=== PATIENT | female | born 1950 | race Caucasian/White ===

== ENCOUNTER 2016-09-04 08:27 | Outpatient (CLI) | payer MEDICARE, BC | END 2016-09-04 23:59 | disposition home or self-care (01) | DX: I10 Essential (primary) hypertension (principal); E78.2 Mixed hyperlipidemia; E03.9 Hypothyroidism, unspecified; Z79.899 Other long term (current) drug therapy ==

== ENCOUNTER 2016-09-15 08:40 | Outpatient (CLI) | payer MEDICARE, BC | END 2016-09-15 08:41 | disposition home or self-care (01) | DX: M85.89 Other specified disorders of bone density and structure, multiple sites (principal); Z78.0 Asymptomatic menopausal state ==

== ENCOUNTER 2016-09-25 09:22 | Outpatient (CLI) | payer MEDICARE, BC ==
--- NOTE | 2016-10-10 13:45 | Mammography Report ---
DIGITAL SCREENING MAMMOGRAM: 09/25/2016 CLINICAL INDICATION: A 66-year-old with history of late childbearing, history of benign left excisio nal biopsy for screening. The patient reports having had previous outside mammograms in [place], [place], but films are not y et available for direct comparison. If they become available, an addendum will be issued. TECHNIQUE: Routine CC and MLO projections were obtained of the breasts. FINDINGS: The breasts demonstrate heterogeneously dense fibroglandular parenchyma bilaterally. In t he left lower inner central breast, there is a possible obscured nodule. Further evaluation with spo t compression views and possible ultrasound is recommended. Biopsy marker is noted in the left upper central posterior breast. Coarse and punctate, typically benign calcifications are present. IMPRESSION: INCOMPLETE EXAMINATION. RECOMMENDATION: Additional evaluation of the left breast as above. BI-RADS category 0, incomplete. STANDARD QUALIFYING STATEMENTS 1. This examination was reviewed with the aid of Computer-Aided Detection (CAD). 2. A negative or benign imaging report should not delay biopsy if clinically suspicious findings are present. Consider surgical consultation if warranted. More than 5% of cancers are not identified by i maging. 3. Dense breasts may obscure an underlying neoplasm. JOB #: [id number] EXT JOB #:[id number]
== END 2016-09-25 09:23 | disposition home or self-care (01) ==
LOC: DI 09:22
PROVIDERS: ATTEND Nurse Practitioner Primary Care
DX: Z12.31 Encounter for screening mammogram for malignant neoplasm of breast (principal); R92.8 Other abnormal and inconclusive findings on diagnostic imaging of breast
CPT/HCPCS: 77067

== ENCOUNTER 2016-10-17 10:54 | Outpatient (CLI) | payer MEDICARE, BC ==
--- NOTE | 2016-10-17 14:12 | Mammography Report ---
DIGITAL DIAGNOSTIC LEFT MAMMOGRAM: 10/17/2016 CLINICAL INDICATION: Possible obscured nodule left lower inner quadrant. TECHNIQUE: Left true lateral and spot compression views. COMPARISON: 09/25/2016. Additionally, films from [place], [place] dated 12/19/2014, 12/14/2013, 12/11, 12/22/2011, 07/11/2011, 01/09/2011, 01/06/2011, 12/13/2010, 12/04/2009, 11/24/2008 are now sasha ilable for direct comparison. FINDINGS: The left breast again demonstrates heterogeneously dense fibroglandular parenchyma. The de nsity in the left lower inner quadrant partially dissipates on additional compression, and appears si milar to multiple previous examinations dating back to 2008. No mammographically suspicious changes a re appreciated. Postbiopsy changes are stable. IMPRESSION: BENIGN FINDINGS. RECOMMENDATION: ROUTINE ANNUAL SCREENING UNLESS OTHERWISE CLINICALLY INDICATED. BIRADS CATEGORY 2-BENIGN FINDINGS. STANDARD QUALIFYING STATEMENTS 1. This examination was reviewed with the aid of Computer-Aided Detection (CAD). 2. A negative or benign imaging report should not delay biopsy if clinically suspicious findings are present. Consider surgical consultation if warranted. More than 5% of cancers are not identified by i maging. 3. Dense breasts may obscure an underlying neoplasm. JOB #: [id number] EXT JOB #:[id number]
== END 2016-10-17 10:55 | disposition home or self-care (01) ==
LOC: DI 10:54
PROVIDERS: ATTEND Nurse Practitioner Primary Care
DX: N63 Unspecified lump in breast (principal)

== ENCOUNTER 2017-09-18 09:00 | Outpatient (CLI) | payer MEDICARE, BC ==
[2017-09-18 10:27] LABS: BASOPHILS % (AUTO) 0.6 %; EOSINOPHILS # (AUTO) 0.2 10^3/uL (0.0-0.7); EOSINOPHILS % (AUTO) 3.7 %; HGB - HEMOGLOBIN 13.3 g/dL (12.0-16.0); LYMPHOCYTES # (AUTO) 2.1 10^3/uL (1.5-3.5); LYMPHOCYTES % (AUTO) 39.4 %; MEAN CORPUSCULAR HEMOGLOBIN 31.6 pg (27.0-31.0); MEAN CORPUSCULAR HGB CONC 33.1 g/dL (32.0-36.0); MEAN CORPUSCULAR VOLUME 95.5 fL (81.0-99.0); MEAN PLATELET VOLUME 9.2 fL (7.9-10.8); MONOCYTES # (AUTO) 0.3 10^3/uL (0.0-1.0); MONOCYTES % (AUTO) 6.2 %; NEUTROPHILS # (AUTO) 2.7 10^3/uL (1.5-6.6); NEUTROPHILS % (AUTO) 50.1 %; PLT - PLATELET COUNT 189 10^3/uL (130-450); RED BLOOD COUNT 4.22 10^6/uL (4.20-5.40); RED CELL DISTRIBUTION WIDTH 13.4 % (12.0-15.0); WHITE BLOOD COUNT 5.4 x10^3/uL (4.8-10.8)
[2017-09-18 11:09] LABS: ALBUMIN 4.3 g/dL (3.2-5.5); ALBUMIN/GLOBULIN RATIO 1.7 (1.0-2.2); ALKALINE PHOSPHATASE 60 IU/L (42-121); ALT ALANINE AMINOTRANSFERASE 23 IU/L (10-60); AST ASPARTATE AMINOTRANSFERASE 23 IU/L (10-42); BILIRUBIN,TOTAL 0.8 mg/dL (0.2-1.0); BUN - BLOOD UREA NITROGEN 10 mg/dL (6-20); CALCIUM 9.2 mg/dL (8.5-10.3); CARBON DIOXIDE - CO2 28 mmol/L (21-32); CHLORIDE 104 mmol/L (101-111); CHOL/HDL RATIO 2.5 (<4.4); CHOLESTEROL 147 mg/dL; CREATININE 0.7 mg/dL (0.4-1.0); GFR - MDRD 83 (>89); GLUCOSE 94 mg/dL (70-100); HDL CHOLESTEROL 58 mg/dL; LDL CHOLESTEROL,CALCULATED 77 mg/dL; LDL/HDL RATIO 1.3 (<4.4); SODIUM 138 mmol/L (135-145); TOTAL PROTEIN 6.9 g/dL (6.7-8.2); VLDL CHOLESTEROL 12 mg/dL
== END 2017-09-18 09:01 | disposition home or self-care (01) ==
LOC: LAB.R 09:00
PROVIDERS: ATTEND Nurse Practitioner Primary Care
DX: E03.9 Hypothyroidism, unspecified (principal); E78.2 Mixed hyperlipidemia; Z79.899 Other long term (current) drug therapy
CPT/HCPCS: 80053; 80061; 83721; 84443; 85025

== ENCOUNTER 2017-11-27 08:57 | Outpatient (CLI) | payer MEDICARE, BC ==
--- NOTE | 2017-11-27 11:12 | Mammography Report ---
Procedure Date: 11/27/2017 Accession Number: [id number] / [id number] Procedure: ROXY - Diagnostic Dig Bilat CPT Code: FULL RESULT: EXAM: Diagnostic Dig Bilat DATE: 11/27/2017 9:40 AM CLINICAL HISTORY: 67-year-old female with a history of benign breast biopsy on the left and a family history of breast cancer in an aunt in her 60s surgical mole removal from the left breast approximately 2 weeks ago with a palpable finding in the same area. TECHNIQUE: Bilateral CC and MLO, left ML and right exaggerated CC views are obtained. COMPARISON: 10/17/2016, 09/25/2016, 12/19/2014, 12/14/2013. FINDINGS: The breasts demonstrate heterogeneously dense fibroglandular parenchyma bilaterally. The right breast demonstrates coarse typically benign calcifications. The left breast contains coarse typically benign calcifications and focal skin thickening is seen in the region of the recent surgical mole removal with no associated underlying soft tissue calcifications, distortions or masses, a typically benign appearance. A biopsy marker seen in the left breast. IMPRESSION: Benign findings RECOMMENDATION: Recommend routine annual Screening mammography unless otherwise clinically indicated. BIRADS CATEGORY 2: Benign findings STANDARD QUALIFYING STATEMENTS: 1. This examination was reviewed with the aid of Computer-Aided Detection (CAD). 2. A negative or benign imaging report should not delay biopsy if clinically suspicious findings are present. Consider surgical consultation if warrented. More than 5% of cancers are not identified by imaging. 3. Dense breasts may obscure an underlying neoplasm.
== END 2017-11-27 08:58 | disposition home or self-care (01) ==
LOC: DI 08:57
PROVIDERS: ATTEND Nurse Practitioner Primary Care
DX: R92.8 Other abnormal and inconclusive findings on diagnostic imaging of breast (principal); Z80.3 Family history of malignant neoplasm of breast
CPT/HCPCS: 77066

== ENCOUNTER 2018-02-01 11:04 | Outpatient (CLI) | payer MEDICARE, BC ==
--- NOTE | 2018-02-01 13:47 | XRAY Report ---
Reason: CERVICALGIA Procedure Date: 02/01/2018 Accession Number: [id number] / [id number] Procedure: XR - Cervical Spine Complete CPT Code: FULL RESULT: EXAM: CERVICAL SPINE RADIOGRAPHY EXAM DATE: 02/01/2018 11:33 AM. CLINICAL HISTORY: Cervicalgia. COMPARISONS: None. TECHNIQUE: 5 views. FINDINGS: Alignment: Normal. No spondylolisthesis or scoliosis. Bones: The cervical vertebral bodies and posterior elements are well-visualized from the skull base through C7-T1. No fractures or bone lesions. Disks: There is multilevel loss of disk space height, which is most pronounced at C4 through C7. Facets: Degenerative facet disease is most pronounced at C6 and C7. Neural Foramina: The neural foramina have bony patency bilaterally but are most narrowed at the C4-C5 and C5-C6 levels bilaterally. Soft Tissues: Normal. No prevertebral soft tissue swelling. The visualized lung apices are clear. IMPRESSION: Multilevel degenerative changes as described. RADIA
== END 2018-02-01 11:05 | disposition home or self-care (01) ==
LOC: DI 11:04
PROVIDERS: ATTEND Nurse Practitioner Primary Care
DX: M50.30 Other cervical disc degeneration, unspecified cervical region (principal); M47.9 Spondylosis, unspecified
CPT/HCPCS: 72050

== ENCOUNTER 2019-11-09 13:28 | Outpatient (CLI) | payer MEDICARE ==
--- NOTE | 2019-11-10 11:11 | Mammography Report ---
BILATERAL DIGITAL SCREENING MAMMOGRAM 3D/2D: 11/09/2019 CLINICAL: Routine screening. Comparison is made to exams dated: 11/27/2017 mammogram, 10/17/2016 mammogram, 09/15/2016 mammogram, 12/19 mammogram, 01/09/2011 ultrasound, and 01/06/2011 ultrasound - [facility]. The t issue of both breasts is heterogeneously dense. This may lower the sensitivity of mammography. There is a biopsy clip in the left breast. No significant masses, calcifications, or other findings are seen in either breast. There has been no significant interval change. IMPRESSION: NEGATIVE There is no mammographic evidence of malignancy. A 1 year screening mammogram is recommended. This exam was interpreted at Station ID: [id number]. NOTE: For mammograms, a report in lay terms will be sent to the patient. Approximately 15% of breast malignancies will not be visualized mammographically. In the management of a palpable breast mass, a negative mammogram must not discourage biopsy of a clinically suspicious lesion. Electronically Signed By: Nel de los santos/dionisio:11/10/2019 09:50:39 ACR BI-RADS Category 1: Negative 3341F PARENCHYMAL PATTERN: (D) - The breast(s) demonstrate(s) heterogeneously dense fibroglandular mark gregory. BI-RADS CATEGORY: (1) - 1 RECOMMENDATION: (ANNUAL) - Recommend routine annual screening mammography. [id number] 1 year screening LATERALITY: (B)
== END 2019-11-09 13:29 | disposition home or self-care (01) ==
LOC: DI 13:28
PROVIDERS: ATTEND Family Medicine
DX: Z12.31 Encounter for screening mammogram for malignant neoplasm of breast (principal)
CPT/HCPCS: 77063; 77067

== ENCOUNTER 2019-11-28 10:20 | Outpatient (CLI) | payer MEDICARE ==
--- NOTE | 2019-11-28 12:52 | XRAY Report ---
PROCEDURE: Foot 3 View BILAT INDICATIONS: PAINFUL 1ST P JOINT BL TECHNIQUE: 3 views of the left foot and 3 views of the right foot were acquired. COMPARISON: None. FINDINGS: Right right: No fractures or dislocations. No suspicious bony lesions. Severe first metatarsophala ngeal joint degeneration. Mild bunion. A gated ossicle at the base of the fifth metatarsus is probabl y sequelae of old injury. Calcaneal spurring. Left foot: Anatomy and fusion at the first metatarsophalangeal joint. No fractures or dislocations. No suspicious bony lesions. Severe first metatarsophalangeal joint degeneration. Calcaneal spurring . IMPRESSION: 1. Bunionectomy and arthrodesis at the left first metatarsophalangeal joint. 2. Mild bunion and severe right first metatarsophalangeal joint degeneration. 3. Bilateral calcaneal spurring. Reviewed by: Wayne Howe MD on 11/28/2019 12:50 PM PDT Approved by: Wayne Howe MD on 11/28/2019 12:50 PM PDT Station ID: [id number]
== END 2019-11-28 10:21 | disposition home or self-care (01) ==
LOC: DI 10:20
PROVIDERS: ATTEND Podiatrist
DX: M21.611 Bunion of right foot (principal); M19.071 Primary osteoarthritis, right ankle and foot; M77.32 Calcaneal spur, left foot; M77.31 Calcaneal spur, right foot

== ENCOUNTER 2020-10-15 09:48 | Outpatient (CLI) | payer MEDICARE, OTHER ==
--- NOTE | 2020-10-17 08:16 | DEXA Report ---
PROCEDURE: Dexa Spine and/or Hip INDICATIONS: POST MENOPAUSAL TECHNIQUE: Dual energy x-ray absorptiometry (DXA) was performed on a [employer] System. Regions measur ed are the AP Spine, femoral neck, and if needed forearm. COMPARISON: Prior similar study 09/15/2016 reviewed. FINDINGS: Lumbar Spine: Bone Mineral Density 1.019 g/cm/cm,T score -1.3, osteopenia, and this represents a statistically i nsignificant reduction of bone mineral density in the lumbosacral spine of 1.3% from 2017. Left Hip: Bone Mineral Density 0.867 g/cm/cm,T score -1.1, osteopenia, and this represents a statistically sig nificant improvement in bone mineral density from the comparison study in September 2016. Left Femoral Neck: Bone Mineral Density 0.807 g/cm/cm, T score -1.7, osteopenia (T score greater or equal to -1.0: NORMAL) (T score from -1.1 to -2.4: OSTEOPENIA) (T score less than or equal to -2.5 to: OSTEOPOROSIS) Impression: No significant change at the lumbosacral spine where osteopenia is again seen. At the lef t hip overall there has been a 4.6% significant improvement in bone mineral density with reference to the prior study from 2017. Patients with diagnosis of osteoporosis or osteopenia should have regular bone mineral density assess ment. For those eligible for Medicare, routine testing is allowed once every 2 years. Testing frequ ency can be increased for patients who have rapidly progressing disease or for those who are receivin g medical therapy to restore bone mass. Reviewed by: Josué Finn MD on 10/17/2020 8:14 AM PDT Approved by: Josué Finn MD on 10/17/2020 8:14 AM PDT Station ID: [id number]
== END 2020-10-15 09:49 | disposition home or self-care (01) ==
LOC: DI 09:48
PROVIDERS: ATTEND Physician Assistant
DX: M85.89 Other specified disorders of bone density and structure, multiple sites (principal)

== ENCOUNTER 2020-11-15 07:18 | Outpatient (CLI) | payer MEDICARE ==
[2020-11-15 08:15] LABS: ALBUMIN 4.4 g/dL (3.2-5.5); ALBUMIN/GLOBULIN RATIO 1.6 (1.0-2.2); ALKALINE PHOSPHATASE 76 IU/L (42-121); ALT ALANINE AMINOTRANSFERASE 28 IU/L (10-60); AST ASPARTATE AMINOTRANSFERASE 22 IU/L (10-42); BILIRUBIN,TOTAL 0.7 mg/dL (0.2-1.0); BUN - BLOOD UREA NITROGEN 15 mg/dL (6-20); CALCIUM 9.5 mg/dL (8.5-10.3); CARBON DIOXIDE - CO2 29 mmol/L (21-32); CHLORIDE 101 mmol/L (101-111); CHOL/HDL RATIO 2.6 (<4.4); CHOLESTEROL 169 mg/dL; CREATININE 0.8 mg/dL (0.4-1.0); GFR - MDRD 71 (>89); GLUCOSE 106 mg/dL (70-100); HDL CHOLESTEROL 65 mg/dL; LDL CHOLESTEROL,CALCULATED 86 mg/dL; LDL/HDL RATIO 1.3 (<4.4); POTASSIUM 3.7 mmol/L (3.5-5.0); SODIUM 138 mmol/L (135-145); TOTAL PROTEIN 7.2 g/dL (6.7-8.2); TRIGLYCERIDES 90 mg/dL; VLDL CHOLESTEROL 18 mg/dL
== END 2020-11-15 07:19 | disposition home or self-care (01) ==
LOC: LAB 07:18
PROVIDERS: ATTEND Family Medicine
DX: E03.9 Hypothyroidism, unspecified (principal); E78.2 Mixed hyperlipidemia; I10 Essential (primary) hypertension
CPT/HCPCS: 36415; 80053; 80061; 83721; 84443

== ENCOUNTER 2021-10-01 09:28 | Outpatient (CLI) | payer MEDICARE ==
[2021-10-01 16:47] LABS: BASOPHILS # (AUTO) 0.1 10^3/uL (0.0-0.1); BASOPHILS % (AUTO) 1.1 %; EOSINOPHILS # (AUTO) 0.2 10^3/uL (0.0-0.7); EOSINOPHILS % (AUTO) 3.2 %; HCT - HEMATOCRIT 41.7 % (37.0-47.0); HGB - HEMOGLOBIN 13.4 g/dL (12.0-16.0); LYMPHOCYTES # (AUTO) 2.2 10^3/uL (1.5-3.5); MEAN CORPUSCULAR HEMOGLOBIN 31.8 pg (27.0-31.0); MEAN CORPUSCULAR HGB CONC 32.1 g/dL (32.0-36.0); MEAN PLATELET VOLUME 11.4 fL (7.9-10.8); MONOCYTES # (AUTO) 0.4 10^3/uL (0.0-1.0); MONOCYTES % (AUTO) 7.4 %; NEUTROPHILS # (AUTO) 2.5 10^3/uL (1.5-6.6); NEUTROPHILS % (AUTO) 47.1 %; PLT - PLATELET COUNT 212 10^3/uL (130-450); RED BLOOD COUNT 4.21 10^6/uL (4.20-5.40); RED CELL DISTRIBUTION WIDTH 12.5 % (12.0-15.0); WHITE BLOOD COUNT 5.3 x10^3/uL (4.8-10.8)
[2021-10-01 17:03] LABS: ALBUMIN 4.4 g/dL (3.2-5.5); ALBUMIN/GLOBULIN RATIO 1.6 (1.0-2.2); ALKALINE PHOSPHATASE 64 IU/L (42-121); ALT ALANINE AMINOTRANSFERASE 25 IU/L (10-60); AST ASPARTATE AMINOTRANSFERASE 20 IU/L (10-42); BILIRUBIN,TOTAL 0.6 mg/dL (0.2-1.0); BUN - BLOOD UREA NITROGEN 18 mg/dL (6-20); CALCIUM 9.4 mg/dL (8.5-10.3); CARBON DIOXIDE - CO2 28 mmol/L (21-32); CHLORIDE 103 mmol/L (101-111); CHOL/HDL RATIO 2.4 (<4.4); CHOLESTEROL 169 mg/dL; CK- CREATINE KINASE 89 IU/L (22-269); CREATININE 0.8 mg/dL (0.4-1.0); GFR - MDRD 71 (>89); GLUCOSE 99 mg/dL (70-100); HDL CHOLESTEROL 69 mg/dL; LDL CHOLESTEROL,CALCULATED 84 mg/dL; LDL/HDL RATIO 1.2 (<4.4); POTASSIUM 3.5 mmol/L (3.5-5.0); SODIUM 140 mmol/L (135-145); TOTAL PROTEIN 7.1 g/dL (6.7-8.2); TRIGLYCERIDES 80 mg/dL; VLDL CHOLESTEROL 16 mg/dL
[2021-10-01 17:13] LABS: THYROID STIMULATING HORMONE 2.57 uIU/mL (0.34-5.60)
== END 2021-10-01 23:59 | disposition home or self-care (01) ==
LOC: LAB.R 09:28
PROVIDERS: ATTEND Internal Medicine
DX: Z00.00 Encounter for general adult medical examination without abnormal findings (principal); E78.5 Hyperlipidemia, unspecified; I10 Essential (primary) hypertension; E03.9 Hypothyroidism, unspecified; M85.80 Other specified disorders of bone density and structure, unspecified site; Z79.899 Other long term (current) drug therapy
CPT/HCPCS: 80053; 80061; 82550; 82607; 83721; 84443; 85025

== ENCOUNTER 2021-11-15 09:32 | Outpatient (CLI) | payer MEDICARE ==
--- NOTE | 2021-11-18 08:07 | Mammography Report ---
BILATERAL DIGITAL SCREENING MAMMOGRAM 3D/2D: 11/15/2021 CLINICAL: Routine screening. Comparison is made to exams dated: 11/09/2019 mammogram, 11/27/2017 mammogram, 09/15/2016 mammogram, and 12/19/2014 mammogram - [facility]. The tissue of both breasts is heterogeneously de nse. This may lower the sensitivity of mammography. There is a benign calcification in the right breast. There also is a biopsy clip in the left breast. No significant masses, calcifications, or other findings are seen in either breast. There has been no significant interval change. IMPRESSION: BENIGN There is no mammographic evidence of malignancy. A 1 year screening mammogram is recommended. Based on the Tyrer Cuzick model (a risk assessment model) the patients lifetime risk is 12.6% and he r 10 year risk is 8.7%. According to the ACR, ACS, and NCCN guidelines, an annual breast MRI exam jose l ng with mammogram is recommended if the patients lifetime risk is 20% or greater. This exam was interpreted at Station ID: [id number]. NOTE: For mammograms, a report in lay terms will be sent to the patient. Approximately 15% of breast malignancies will not be visualized mammographically. In the management of a palpable breast mass, a negative mammogram must not discourage biopsy of a clinically suspicious lesion. Electronically Signed By: Aidan field/dionisio:11/15/2021 17:40:38 ACR BI-RADS Category 2: Benign Finding(s) 3342F PARENCHYMAL PATTERN: (D) - The breast(s) demonstrate(s) heterogeneously dense fibroglandular mark gregory. BI-RADS CATEGORY: (2) - 2 RECOMMENDATION: (ANNUAL) - Recommend routine annual screening mammography. [id number] 1 year screening LATERALITY: (B)
== END 2021-11-15 09:33 | disposition home or self-care (01) ==
LOC: DI 09:32
PROVIDERS: ATTEND Internal Medicine
DX: Z12.31 Encounter for screening mammogram for malignant neoplasm of breast (principal)

== ENCOUNTER 2022-11-10 11:13 | Outpatient (CLI) | payer MEDICARE ==
--- NOTE | 2022-11-12 10:13 | Mammography Report ---
BILATERAL DIGITAL SCREENING MAMMOGRAM 3D/2D: 11/10/2022 CLINICAL: Routine screening. Comparison is made to exams dated: 11/15/2021 mammogram, 11/09/2019 mammogram, 11/27/2017 mammogram, 2016 mammogram, 09/15/2016 mammogram, and 12/19/2014 mammogram - [facility]. Both breasts are heterogeneously dense, which may obscure small masses (category c / 51-75% glandular tissue). There is a benign calcification in the right breast. There also is a biopsy clip in the left breast. No significant masses, calcifications, or other findings are seen in either breast. There has been no significant interval change. IMPRESSION: BENIGN There is no mammographic evidence of malignancy. A 1 year screening mammogram is recommended. Based on the Tyrer Cuzick model (a risk assessment model) the patients lifetime risk is 11.1% and he r 10 year risk is 8.4%. According to the ACR, ACS, and NCCN guidelines, an annual breast MRI exam ojse l ng with mammogram is recommended if the patients lifetime risk is 20% or greater. This exam was interpreted at Station ID: [id number]. NOTE: For mammograms, a report in lay terms will be sent to the patient. Approximately 15% of breast malignancies will not be visualized mammographically. In the management of a palpable breast mass, a negative mammogram must not discourage biopsy of a clinically suspicious lesion. Electronically Signed By: Josiah mac/dionisio:11/10/2022 19:07:36 letter sent: No_Letter ACR BI-RADS Category 2: Benign Finding(s) 3342F PARENCHYMAL PATTERN: (D) - The breast(s) demonstrate(s) heterogeneously dense fibroglandular parenchy ma. BI-RADS CATEGORY: (2) - 2 Mammogram [id number] 1 year screening LATERALITY: (B)
== END 2022-11-10 11:14 | disposition home or self-care (01) ==
LOC: DI 11:13
PROVIDERS: ATTEND Internal Medicine
DX: Z12.31 Encounter for screening mammogram for malignant neoplasm of breast (principal)

== ENCOUNTER 2023-11-27 09:12 | Outpatient (CLI) | payer MEDICARE ==
--- NOTE | 2023-11-30 09:39 | Mammography Report ---
BILATERAL DIGITAL SCREENING MAMMOGRAM 3D/2D: 11/27/2023 CLINICAL: Routine screening. Comparison is made to exams dated: 11/10/2022 mammogram, 11/15/2021 mammogram, 11/09/2019 mammogram, 2017 mammogram, 10/17/2016 mammogram, and 09/15/2016 mammogram - [facility]. Both breasts are heterogeneously dense, which may obscure small masses (category c / 51-75% glandular tissue). There is a possible new irregular architectural distortion in the right breast at 12 o'clock posterio r depth. No other significant masses, calcifications, or other findings are seen in either breast. IMPRESSION: INCOMPLETE: NEEDS ADDITIONAL IMAGING EVALUATION The possible new irregular architectural distortion in the right breast is indeterminate. Additional views with possible ultrasound are recommended. Based on the Tyrer Cuzick model (a risk assessment model) the patient's lifetime risk is 10.5% and he r 10 year risk is 8.6%. According to the ACR, ACS, and NCCN guidelines, an annual breast MRI exam jose l ng with mammogram is recommended if the patient's lifetime risk is 20% or greater. This exam was interpreted at Station ID: [id number]. NOTE: For mammograms, a report in lay terms will be sent to the patient. Approximately 15% of breast malignancies will not be visualized mammographically. In the management of a palpable breast mass, a negative mammogram must not discourage biopsy of a clinically suspicious lesion. Electronically Signed By: Josiah Holcomb M.D. aty/:11/27/2023 14:30:31 ACR BI-RADS Category 0: Incomplete 3340F PARENCHYMAL PATTERN: (D) - The breast(s) demonstrate(s) heterogeneously dense fibroglandular parenchy ma. BI-RADS CATEGORY: (0) - 0 Mammo and [place] [id number] Immediate follow-up LATERALITY: (R)
== END 2023-11-27 09:13 | disposition home or self-care (01) ==
LOC: DI 09:12
PROVIDERS: ATTEND Internal Medicine
DX: Z12.31 Encounter for screening mammogram for malignant neoplasm of breast (principal); R92.8 Other abnormal and inconclusive findings on diagnostic imaging of breast; R92.333 Mammographic heterogeneous density, bilateral breasts

== ENCOUNTER 2023-11-27 09:37 | Outpatient (CLI) | payer MEDICARE ==
--- NOTE | 2023-11-27 13:49 | DEXA Report ---
PROCEDURE: Dexa Spine and/or Hip INDICATIONS: OSTEOPENIA TECHNIQUE: Dual energy x-ray absorptiometry (DXA) was performed on a [employer] System. Regions measur ed are the AP Spine, femoral neck, and if needed forearm. COMPARISON: DEXA 10/15/2020 FINDINGS: Lumbar Spine: Bone Mineral Density: 0.954 g/cm/cm,T score: -1.8. There has been no statistically significant rendon e in bone mineral density since the prior study. Left Femoral Neck: Bone Mineral Density: 0.805 g/cm/cm, T score: -1.7. Left Hip: Bone Mineral Density: 0.815 g/cm/cm,T score: -1.5. Since the most recent prior study, there has been a statistically significant decrease in bone mineral density by 6.0 percent. (T score greater or equal to -1.0: NORMAL) (T score from -1.1 to -2.4: OSTEOPENIA) (T score less than or equal to -2.5 to: OSTEOPOROSIS) Impression: By WHO criteria, this patient has low bone density (osteopenia). No statistical interval change in bone mineral density of the lumbar spine. Interval statistical decr ease in bone mineral density of the hip. Patients with diagnosis of osteoporosis or osteopenia should have regular bone mineral density assess ment. For those eligible for Medicare, routine testing is allowed once every 2 years. Testing frequ ency can be increased for patients who have rapidly progressing disease or for those who are receivin g medical therapy to restore bone mass. Reviewed by: Cali Thompson MD on 11/27/2023 1:47 PM PDT Approved by: Cali Thompson MD on 11/27/2023 1:47 PM PDT Station ID: [id number]
== END 2023-11-27 09:38 | disposition home or self-care (01) ==
LOC: DI 09:37
PROVIDERS: ATTEND Internal Medicine
DX: M85.89 Other specified disorders of bone density and structure, multiple sites (principal)

== ENCOUNTER 2023-12-10 08:39 | Outpatient (CLI) | payer MEDICARE ==
--- NOTE | 2023-12-11 09:39 | Ultrasound Report ---
LIMITED ULTRASOUND OF RIGHT BREAST: 12/10/2023 CLINICAL: Patient returns today to evaluate a focal asymmetry in the right breast. Comparison is made to exams dated: 12/10/2023 mammogram, 11/27/2023 mammogram, 11/10/2022 mammogram, 2021 mammogram, 11/09/2019 mammogram, and 11/27/2017 mammogram - [facility]. Ultrasound of the right breast 11 o'clock region was performed. Knowles scale images of the real-time e xamination were reviewed. No significant abnormalities were seen sonographically in the right breast. Specifically, no finding to correspond to the patient's single view mammographic abnormality. IMPRESSION: PROBABLY BENIGN No suspicious sonographic findings. A follow-up right mammogram and an ultrasound in 6 months is antolin mmended to demonstrate mammographic stability. Findings and recommendations were conveyed to the pa tient at time of exam. This exam was interpreted at Station ID: [id number]. Electronically Signed By: Nel de los santos/:12/10/2023 10:19:34 Ultrasound BI-RADS: 3 Probably benign BI-RADS CATEGORY: (3) - 3 Mammo and [place] [id number] 6 month follow-up LATERALITY: (R)
--- NOTE | 2023-12-11 09:39 | Mammography Report ---
UNILATERAL RIGHT DIGITAL DIAGNOSTIC MAMMOGRAM 3D/2D WITH SPOT COMPRESSION: 12/10/2023 CLINICAL: Patient returns today to evaluate an architectural distortion in the right breast. Comparison is made to exams dated: 11/27/2023 mammogram, 11/10/2022 mammogram, 11/15/2021 mammogram, 2019 mammogram, 11/27/2017 mammogram, and 10/17/2016 mammogram - [facility]. The right breast is heterogeneously dense, which may obscure small masses (category c / 51-75% glandu lar tissue). There is possible irregular equal density architectural distortion with a spiculated margin in the ri ght breast at 11 o'clock middle depth. This is only seen on the CC spot view, and not seen in additi onal views. No other significant masses or calcifications are seen in the breast. IMPRESSION: INCOMPLETE: NEEDS ADDITIONAL IMAGING EVALUATION The possible irregular equal density architectural distortion in the right breast is indeterminate. An ultrasound is recommended. This was performed immediately following this exam. Based on the Tyrer Cuzick model (a risk assessment model) the patient's lifetime risk is 10.5% and he r 10 year risk is 8.6%. According to the ACR, ACS, and NCCN guidelines, an annual breast MRI exam jose l ng with mammogram is recommended if the patient's lifetime risk is 20% or greater. This exam was interpreted at Station ID: [id number]. NOTE: For mammograms, a report in lay terms will be sent to the patient. Approximately 15% of breast malignancies will not be visualized mammographically. In the management of a palpable breast mass, a negative mammogram must not discourage biopsy of a clinically suspicious lesion. Electronically Signed By: Nel de los santos/:12/10/2023 09:53:53 ACR BI-RADS Category 0: Incomplete 3340F PARENCHYMAL PATTERN: (D) - The breast(s) demonstrate(s) heterogeneously dense fibroglandular parenchy ma. BI-RADS CATEGORY: (0) - 0 Ultrasound [id number] Immediate follow-up LATERALITY: (B)
== END 2023-12-10 08:40 | disposition home or self-care (01) ==
LOC: DI 08:39
PROVIDERS: ATTEND Internal Medicine
DX: R92.8 Other abnormal and inconclusive findings on diagnostic imaging of breast (principal); R92.331 Mammographic heterogeneous density, right breast

== ENCOUNTER 2023-12-21 10:33 | Outpatient (CLI) | payer MEDICARE ==
--- NOTE | 2023-12-21 18:02 | SLEEP CARE CONSULTATION ---
Information from patient questionnaire entered by Shannon Auguste. I have reviewed and concur with the information entered by Shannon Auguste. This document represents the service I personally performed and the decisions made by me, Suleman Rai MD, [facility]. History of Present Illness Service Date and Time: 12/21/2023 1033 Reason for Visit: New patient Chief Complaint: reports: Unrefreshed sleep, Observed pauses in breathing, Frequent awakenings at night Date of Onset: ABOUT 1.5YRS Usual bedtime: 2200 Time it takes to fall asleep: 1HR Snores at night: Yes Observed to quit breathing while asleep: No Sleeps alone due to snoring: No Number of times waking at night: 3-4 Reasons for waking at night: reports: Gasping for air, Pain, Bathroom Toss, Turn, or Twitch while sleeping: Yes Recalls having dreams: Yes Usually gets out of bed at: [id number] Feels refreshed in the morning: No Morning headache: No Sleepy or fatigued during the day: Yes Ever fallen asleep while driving: No Takes day naps: No Prior sleep studies: No Additional HPI information: I have the pleasure of seeing Ms. Montalvo today regarding the possibility of her having obstructive sleep apnea. As you know, she is a 73-year-old lady who complains of frequent awakenings, unrefreshed sleep, and observed apneas. The patient tells me that she normally goes to bed around 10 pm, and it takes her approximately 60 minutes to fall asleep. She does not take any sleep aid. She has been told that she snores occasionally at night. She has also been observed to stop breathing in her sleep. She sleeps alone. She can recall waking up on the average of 3 - 4 times during the night. Most of the time she wakes up because of having to use the bathroom and pain. She has awakened occasionally because of her own snoring, choking, and having to gasp for air. There is a lot of tossing and turning in her sleep. No somniloquy (sleep talking) or somnambulism (sleep walking). Generally, she can recall having dreams. In the morning she usually gets up out of the bed around 7:30 - 8:30 a.m. not feeling refreshed nor rested. She usually does not have a morning headache. During the day she complains of feeling sleepy and fatigued. However, her score on [place] Sleepiness Scale is 1 out of 24. She never has fallen asleep while driving nor has had any accident due to sleepiness. She usually does not take naps during the day. Upon falling asleep during the day she denies having vivid dreams. She has never had sleep paralysis, experienced cataplexy or symptoms of restless leg syndrome. She denies having impaired concentration during the day. - Parasomnia Symptoms Ever been unable to move upon waking from sleep: No Walks in sleep: No Talks in sleep: No Ever acted out dreams in sleep: No Ever felt weak in the knees when startled or emotional: No Bothered by creepy, crawly, restless sensations in legs: No Problems with memory or concentration: No Subjective Initial [place] Sleepiness Scale score: 1 (12/21/23) Past Medical History Past Medical History: reports: Hypertension, Hypothyroidism Social History The patient's occupation is a RE. Patient is Single and lives in . Have you smoked in the past 12 months: No Cigarettes per day (20/pack): 20 Years of smokin Quit date: 1973 Smoking Pack Years: 3.0 Alcohol use: Yes Alcohol amount and frequency: 8-10OZ WINE 2-3 TIME A WEEK Caffeine use: Yes Caffeine amount and frequency: 1-2 CUPS COFFEE 5X WEEK IN AM Family History Family history of sleep disordered breathing: No Allergies and Home Medications Known drug allergies: No Drug allergies reviewed: Yes Home medication list reviewed: Yes Review of Systems Cardiovascular: reports: high blood pressure Respiratory: denies: shortness of breath, wheeze, sputum production, chronic cough, other Gastrointestinal: denies: heartburn, difficulty swallowing, nausea, vomitting, diarrhea, abdominal pain, other Urinary: reports: frequency Neurological: denies: headaches, seizure, head trauma, disorientation, speech dysfunction, gait or balance problems, fainting or unconsciousness, other Psychiatric: reports: anxiety Ear/Nose/Throat: denies: nasal congestion, sinus problems, nose bleeds, dry mouth/throat, hoarseness, injury to nose, tonsillectomy, wisdom teeth removed, other Endocrine: reports: increased urination Musculoskeletal: reports: joint pain, back pain Immunologic: reports: itching Physical Exam Vital signs obtained and entered by: SHANNON Lopez MA Blood Pressure: 154/79 (LEFT ARM) Cuff size: ADLT SMALL Heart Rate: 52 O2 Saturation: 100 Height: 5 ft 1.75 in Weight: 121 lb 12.8 oz Body Mass Index: 22.4 BMI Classification: Normal Neck circumference: 12.75 Mood/affect: Normal HEENT: No craniofacial malformation Nostrils: patent to airflow Turbinates: normal Septum: midline Mouth and throat: narrow oropharynx Soft palate: long Hard palate: normal Uvula: normal Uvula visualization: 50% Mallampati Class II Tongue: normal in size Tonsils: small Chin and jaw: normal size and position Neck: normal w/o lymphadenopathy or thyromegaly Heart: regular rate and rhythm Lungs: clear bilaterally Extremities: no edema or clubbing Neurologic: intact Impression and Plan IMPRESSION: 1. Obstructive Sleep Apnea-Hypopnea Syndrome, as evident by history of snoring, observed cessation of breath while asleep, nocturnal choking, frequent awakenings during the night, unrefreshed sleep, and fatigue. Narrow oropharynx is a common predisposing factor for obstructive sleep apnea-hypopnea syndrome. I recommend proceeding to polysomnography to confirm the diagnosis and to assess severity. If she has significant sleep disordered breathing. I informed the patient of what the sleep studies involve and after some discussion, she agreed to proceed. 2. Insomnia, due to excessive time spent in bed. After long term, she wakes up 2 3 hours later but fails to also move her bedtime later. Assuming the normal sleep requirement of 8 hours a night, I advised her to not go to bed until midnight. Plan: 1. Schedule polysomnography and return in 1 to 2 weeks after the study to discuss the result and initiate therapy. 2. Maintain a regular wake up time and spend no more than 8 hours in bed at night. Avoid naps. Counseling Topics: Weight control Follow up with Sleep Care in: 1-2 months Visit Type: In Office Time Spent with Patient (minutes): 15 Provider Statement: I spent 100% of the Face to Face Visit with the patient with greater than 50% spent counseling the patient and coordination of care.
[2023-12-21 18:10] VITALS: BP 154/79; O2SAT 100
== END 2023-12-21 10:34 | disposition home or self-care (01) ==
LOC: SC 10:33
PROVIDERS: ATTEND Internal Medicine Pulmonary Disease
DX: R06.81 Apnea, not elsewhere classified (principal); R06.3 Periodic breathing; R53.83 Other fatigue; G47.8 Other sleep disorders; G47.00 Insomnia, unspecified; Z87.891 Personal history of nicotine dependence
CPT/HCPCS: 99202; G0463; 99212

== ENCOUNTER 2024-01-25 19:29 | Outpatient (CLI) | payer MEDICARE | END 2024-01-25 19:30 | disposition home or self-care (01) | LOC: SC 19:29 | PROVIDERS: ATTEND Internal Medicine Pulmonary Disease | DX: G47.61 Periodic limb movement disorder (principal); I10 Essential (primary) hypertension | CPT/HCPCS: 95810 ==

== ENCOUNTER 2024-02-03 13:15 | Outpatient (CLI) | payer MEDICARE ==
--- NOTE | 2024-02-03 13:47 | Sleep Patient Instructions ---
Sleep Center Visit Summary - Patient Visit Information Reason for Visit: Sleep study follow-up - Patient Instructions Instructions Attached: Restless Leg Syndrome Additional Instructions: Your sleep study today was negative for significant sleep disordered breathing. You were found to have mild periodic leg movements of sleep that did not cause sleep fragmentation. Follow-up as needed. - Clinic Information Contact: [facility] [address] [place] [address] [email or web address] T: [phone]
--- NOTE | 2024-02-03 13:50 | SLEEP CARE CONSULTATION ---
Information from patient questionnaire entered by Neil Vazquez. I have reviewed and concur with the information entered by Neil Vazquez. This document represents the service I personally performed and the decisions made by , Irene Harding ARNP. History of Present Illness Service Date and Time: 02/03/2024 1315 Initial [place] Sleepiness Scale score: 1 (12/21/23) Current [place] Sleepiness Scale score: 1 (02/03/24) Additional HPI information: RADHA CARTER returns for follow up and results of the recently performed polysomnography done on 01/25/24. The patient was informed of the following findings: No significant sleep disord ered breathing with an average AHI of 0.7 and sayda oxygen saturation of 91%. She had mild PLMs that did not contribute to sleep fragmentation. I explained the pathophysiology behind obstructive sleep apnea. Patient does not have sleep apnea and was advised how weight gain could increase the risk of developing sleep apnea in the future. Patient counseled not drink alcohol less than 4 hours before bedtime as it can increase snoring and apnea. Patient was cautioned about risks of drowsy driving until sleepiness symptoms resolve. Patient denies drowsy driving. Sleep Study - Results Prior sleep studies: No Polysomnography/Home Sleep Study results: IMPRESSION: The quality of the study is good. The patient had normal sleep efficiency. Except for mild sleep fragmentation, the sleep architecture was also normal. Respiratory monitoring showed no significant sleep disordered breathing (AHI = 0.7) or hypoxia (sayda oxygen saturation of 91%). The patient did not sleep supine during this study (supine AHI = 0.0; non-supine = 0.66). No audible snore. There was mild periodic leg movement of sleep not associated with sleep fragmentation. Cardiac rhythm was normal sinus rhythm without significant arrhythmia. No abnormal behavior (parasomnia) observed during the night. Allergies and Home Medications Known drug allergies: No Drug allergies reviewed: Yes Home medication list reviewed: Yes (no changes) Allergy and home medication list: Allergies No Known Drug Allergies Allergy (Verified 12/21/23 10:43) Review of Systems Review of systems same as previous: Yes (no changes) Physical Exam Vital signs obtained and entered by: Irene Pozo NP Blood Pressure: 124/74 Cuff size: regular (left arm) Heart Rate: 59 O2 Saturation: 98 Height: 5 ft 1.75 in Weight: 122 lb 9.6 oz Body Mass Index: 22.6 BMI Classification: Normal Impression and Plan 1. Periodic limb movement, mild, that did not fragment patients sleep. Periodic limb movement of sleep (PLMS) is characterized by episodes of repetitive limb movements that occur during sleep and usually involve the lower limbs. The etiology is unknown. Sleep hygiene methods can also improve sleep as well as lifestyle changes such as regular exercise. Patient was advised that no treatment is needed at this time but she may return to PCP for further evaluation. * Follow up with PCP as needed * Maintain a healthy weight * Avoid alcohol consumption near bedtime * Return as needed for follow up. Counseling Topics: Weight control Follow up with Sleep Care in: as needed Visit Type: In Office Time Spent with Patient (minutes): 15 Provider Statement: I spent 100% of the Face to Face Visit with the patient with greater than 50% spent counseling the patient and coordination of care.
[2024-02-03 13:51] VITALS: BP 124/74; O2SAT 98
== END 2024-02-03 13:16 | disposition home or self-care (01) ==
LOC: SC 13:15
PROVIDERS: ATTEND Nurse Practitioner Family
DX: G47.61 Periodic limb movement disorder (principal)
CPT/HCPCS: 99212; G0463